=== PATIENT | male | born 1960 | race African-American/Black ===

== ENCOUNTER 2017-06-21 15:39 | Emergency (ER) | payer MEDICARE, MEDICAID ==
[~2017-06-21] VITALS: Ht 175.3 cm; Wt 75.0 kg
[~2017-06-21 15:39] MED LIST: ALBU8.5H8 IH; CLIN-80 PO; CYCL-1 PO; IBUP-1985 PO; IBUP-1986 PO; NO HOME MEDS; PERM60CR4 TOP
[2017-06-21 15:43] VITALS: BP 121/85
[2017-06-21] MEDS ORDERED: GUAI120015 PO (15:49)
[2017-06-21] MEDS ORDERED: ALBU6.7H INH (15:49)
== END 2017-06-21 16:00 | disposition home or self-care (01) ==
LOC: ER 15:39
DX: J20.9 Acute bronchitis, unspecified (principal); J44.0 Chronic obstructive pulmonary disease with (acute) lower respiratory infection; G89.29 Other chronic pain; F15.10 Other stimulant abuse, uncomplicated; F17.210 Nicotine dependence, cigarettes, uncomplicated; Z88.1 Allergy status to other antibiotic agents; Z88.6 Allergy status to analgesic agent; Z88.8 Allergy status to other drugs, medicaments and biological substances; Z59.0 Homelessness; Z86.19 Personal history of other infectious and parasitic diseases
CPT/HCPCS: 99283

== ENCOUNTER 2017-07-29 19:23 | Emergency (ER) | payer MEDICARE, MEDICAID ==
[~2017-07-29] VITALS: Ht 175.3 cm; Wt 65.5 kg
[~2017-07-29 19:23] MED LIST changes: +ALBU6.7H INH; +GUAI120015 PO
[2017-07-29 20:44] VITALS: BP 150/93
[2017-07-29] MEDS ORDERED: GUAI473S11 PO (21:19)
[2017-07-29] MEDS ORDERED: IBUP-1984 PO (21:19)
[2017-07-29] MEDS ORDERED: PSEU120T55 PO (21:19)
[2017-07-29] MEDS ORDERED: AZIT250T PO (21:19)
== END 2017-07-29 21:28 | disposition home or self-care (01) ==
LOC: ER 19:24
DX: J06.9 Acute upper respiratory infection, unspecified (principal); J40 Bronchitis, not specified as acute or chronic; G89.29 Other chronic pain; J44.9 Chronic obstructive pulmonary disease, unspecified; Z59.0 Homelessness; F15.90 Other stimulant use, unspecified, uncomplicated; Z98.890 Other specified postprocedural states; Z79.899 Other long term (current) drug therapy
CPT/HCPCS: 71045; 99284

== ENCOUNTER 2017-08-18 22:20 | Emergency (ER) | payer MEDICARE, MEDICAID ==
[~2017-08-18] VITALS: Ht 175.3 cm; Wt 64.0 kg
[~2017-08-18 22:20] MED LIST changes: +AZIT250T PO; +GUAI473S11 PO; +IBUP-1984 PO; +PSEU120T55 PO
[2017-08-18] MEDS ORDERED: aspirin 81mg tab.chew PO ONE (23:15)
[2017-08-18] MEDS ORDERED: AZIT-55 PO (23:54)
[2017-08-19 00:21] LABS: BASOPHILS # (AUTO) 0.1 X10'3 (0-0.2); BASOPHILS % (AUTO) 1.2 % (0-1); EOSINOPHILS # (AUTO) 0.1 X10'3 (0-0.9); EOSINOPHILS % (AUTO) 1.9 % (0-6); HEMATOCRIT 40.1 % (42.0-52.0); HEMOGLOBIN 13.2 g/dl (14.0-17.9); LYMPHOCYTES # (AUTO) 1.8 X10'3 (1.1-4.8); LYMPHOCYTES % (AUTO) 38.8 % (21-51); MEAN CORPUSCULAR HEMOGLOBIN 30.4 PG (27.0-31.0); MEAN CORPUSCULAR HGB CONC 32.8 % (33.0-36.5); MEAN CORPUSCULAR VOLUME 92.6 FL (78-98); MEAN PLATELET VOLUME 7.4 FL (7.4-10.4); MONOCYTES # (AUTO) 0.6 X10'3 (0-0.9); MONOCYTES % (AUTO) 13.3 % (2-12); NEUTROPHILS % (AUTO) 44.8 % (42-75); PLATELET COUNT 293 X10'3 (140-440); RED BLOOD COUNT 4.33 X10'6 (4.70-6.10); RED CELL DISTRIBUTION WIDTH 13.1 % (11.5-14.5); WHITE BLOOD COUNT 4.6 X10'3 (4.5-11.0)
[2017-08-19 00:41] LABS: ALANINE AMINOTRANSFERASE 105 U/L (12-78); ALBUMIN 3.2 G/DL (3.4-5.0); ALBUMIN/GLOBULIN RATIO 0.7 (1.1-1.5); ALKALINE PHOSPHATASE 85 IU/L (46-116); ANION GAP 4 (8-16); ASPARTATE AMINO TRANSFERASE 55 U/L (10-37); BILIRUBIN,TOTAL 0.4 MG/DL (0.1-1.0); BLOOD UREA NITROGEN 18 MG/DL (7-18); BUN/CREATININE RATIO 17.6 (5.4-32.0); CALCIUM 8.5 MG/DL (8.5-10.1); CHLORIDE 107 MMOL/L (99-107); CREATININE 1.02 MG/DL (0.60-1.10); GLUCOSE 89 MG/DL (70-104); MAGNESIUM 2.1 MG/DL (1.5-2.4); POTASSIUM 3.8 MMOL/L (3.5-5.1); SODIUM 141 MMOL/L (135-145); TOTAL CARBON DIOXIDE 30.3 MMOL/L (24-32); TOTAL PROTEIN 7.6 G/DL (6.4-8.2); eGFR > 90 ML/MIN
[2017-08-19 01:09] VITALS: BP 137/86
== END 2017-08-19 01:15 | disposition home or self-care (01) ==
LOC: ER 22:21
DX: R07.9 Chest pain, unspecified (principal); J44.9 Chronic obstructive pulmonary disease, unspecified; F17.200 Nicotine dependence, unspecified, uncomplicated; F15.10 Other stimulant abuse, uncomplicated; Z59.0 Homelessness
CPT/HCPCS: 36415; 71045; 80053; 83735; 83880; 84484; 85025; 93005; 99285; J7030

== ENCOUNTER 2017-08-29 09:47 | Emergency (ER) | payer MEDICARE, MEDICAID ==
[~2017-08-29] VITALS: Ht 165.1 cm; Wt 72.7 kg
[~2017-08-29 09:47] MED LIST changes: +AZIT-55 PO
[2017-08-29 09:50] VITALS: BP 120/71
[2017-08-29] MEDS ORDERED: DOXY100C2 PO (11:11)
[2017-08-29] MEDS ORDERED: CefTRIAXone 1000mg IM Kit (w/lidocaine diluent) IM ONE (11:15)
[2017-08-29] MEDS ORDERED: azithromycin 250mg tablet PO ONE (11:15)
== END 2017-08-29 11:58 | disposition home or self-care (01) ==
LOC: ER 09:47
DX: R59.1 Generalized enlarged lymph nodes (principal); R21 Rash and other nonspecific skin eruption; J44.9 Chronic obstructive pulmonary disease, unspecified; G89.29 Other chronic pain; F15.10 Other stimulant abuse, uncomplicated; Z59.0 Homelessness; Z86.19 Personal history of other infectious and parasitic diseases; Z98.890 Other specified postprocedural states; Z79.899 Other long term (current) drug therapy
CPT/HCPCS: 96372; 99283; J0696

== ENCOUNTER 2017-09-03 13:28 | Emergency (ER) | payer MEDICARE, MEDICAID ==
[~2017-09-03] VITALS: Ht 175.3 cm; Wt 72.7 kg
[~2017-09-03 13:28] MED LIST changes: +DOXY100C2 PO; -GUAI473S11 PO; -IBUP-1984 PO
[2017-09-03 13:49] VITALS: BP 144/90
[2017-09-03] MEDS ORDERED: IBUP-1984 PO (13:49)
== END 2017-09-03 14:04 | disposition home or self-care (01) ==
LOC: ER 13:28
DX: R59.1 Generalized enlarged lymph nodes (principal); J44.9 Chronic obstructive pulmonary disease, unspecified; G89.29 Other chronic pain; F15.10 Other stimulant abuse, uncomplicated; Z98.890 Other specified postprocedural states; Z59.0 Homelessness; Z79.899 Other long term (current) drug therapy
CPT/HCPCS: 99282

== ENCOUNTER 2017-09-13 02:17 | Emergency (ER) | payer MEDICARE, MEDICAID ==
[~2017-09-13] VITALS: Ht 175.3 cm; Wt 65.2 kg
[~2017-09-13 02:17] MED LIST changes: -AZIT-55 PO; -DOXY100C2 PO; +IBUP-1984 PO
[2017-09-13 02:50] VITALS: BP 138/91
== END 2017-09-13 03:06 | disposition left against medical advice (07) ==
LOC: ER 02:18
DX: R21 Rash and other nonspecific skin eruption (principal); Z53.21 Procedure and treatment not carried out due to patient leaving prior to being seen by health care provider

== ENCOUNTER 2017-11-16 15:53 | Emergency (ER) | payer MEDICARE, MEDICAID ==
[~2017-11-16] VITALS: Ht 175.3 cm; Wt 64.1 kg
[~2017-11-16 15:53] MED LIST changes: -CLIN-80 PO; +CLIN300C85 PO; -IBUP-1984 PO
[2017-11-16] MEDS ORDERED: ibuprofen tablet 400 MG TABLET PO ONE (16:45)
[2017-11-16] MEDS ORDERED: IBUP-1984 PO (16:47)
[2017-11-16 16:56] VITALS: BP 135/89
== END 2017-11-16 16:57 | disposition home or self-care (01) ==
LOC: ER 15:54
DX: M79.662 Pain in left lower leg (principal); J44.9 Chronic obstructive pulmonary disease, unspecified; G89.29 Other chronic pain; F15.90 Other stimulant use, unspecified, uncomplicated; Z79.899 Other long term (current) drug therapy; Z59.0 Homelessness
CPT/HCPCS: 99282

== ENCOUNTER 2018-02-17 23:03 | Emergency (ER) | payer MEDICARE, MEDICAID ==
[~2018-02-17] VITALS: Ht 175.3 cm; Wt 52.0 kg
[2018-02-17 23:12] VITALS: BP 132/80
[2018-02-17] MEDS ORDERED: AMOX500C2 PO (23:49)
[2018-02-17] MEDS ORDERED: ibuprofen tablet 400 MG TABLET PO ONE (23:50)
== END 2018-02-18 00:07 | disposition home or self-care (01) ==
LOC: ER 23:05
DX: J02.9 Acute pharyngitis, unspecified (principal); J44.9 Chronic obstructive pulmonary disease, unspecified; G89.29 Other chronic pain; F15.90 Other stimulant use, unspecified, uncomplicated; Z98.890 Other specified postprocedural states; Z59.0 Homelessness
CPT/HCPCS: 99283

== ENCOUNTER 2018-03-14 19:58 | Emergency (ER) | payer MEDICARE, MEDICAID ==
[~2018-03-14] VITALS: Ht 175.3 cm; Wt 75.0 kg
[~2018-03-14 19:58] MED LIST changes: +AMOX500C2 PO
[2018-03-14 20:05] VITALS: BP 131/87
== END 2018-03-14 22:13 | disposition home or self-care (01) ==
LOC: ER 19:59
DX: B34.9 Viral infection, unspecified (principal); J44.9 Chronic obstructive pulmonary disease, unspecified; G89.29 Other chronic pain; F15.90 Other stimulant use, unspecified, uncomplicated; F17.210 Nicotine dependence, cigarettes, uncomplicated; Z59.0 Homelessness
CPT/HCPCS: 71045; 99283

== ENCOUNTER 2018-05-09 08:01 | Inpatient (IN) | payer MEDICARE, MEDICAID ==
[~2018-05-09] VITALS: Ht 175.3 cm; Wt 65.9 kg
[~2018-05-09 08:01] MED LIST changes: -AMOX500C2 PO; +AZIT-72 PO
[2018-05-09] MEDS ORDERED: normal saline 1000ML IV soln IV ONE (08:20)
[2018-05-09] MEDS ORDERED: morphine 4 MG/ML inj SYRINge IV ONE (08:20)
[2018-05-09] MEDS ORDERED: methylPREDNISolone sod succ 125mg/2ml vial IV ONE (08:20)
[2018-05-09] MEDS ORDERED: ipratropium/albuterol 3ml nebule NEB ONE (08:20)
[2018-05-09] MEDS ORDERED: CefTRIAXone 2gm/D5W 50ml 50 ML IV ONE (08:20)
[2018-05-09] MEDS ORDERED: azithromycin/NS 500mg/250ml 250 ML IV ONE (08:20)
[2018-05-09 08:53] LABS: BASOPHILS % (AUTO) 0.1 % (0-1); EOSINOPHILS % (AUTO) 0 % (0-6); HEMOGLOBIN 13.3 g/dl (14.0-17.9); LYMPHOCYTES # (AUTO) 1.5 X10'3 (1.1-4.8); LYMPHOCYTES % (AUTO) 9.7 % (21-51); MEAN CORPUSCULAR HEMOGLOBIN 30.4 PG (27.0-31.0); MEAN CORPUSCULAR HGB CONC 32.6 % (33.0-36.5); MEAN CORPUSCULAR VOLUME 93.3 FL (78-98); MEAN PLATELET VOLUME 7.7 FL (7.4-10.4); MONOCYTES # (AUTO) 0.3 X10'3 (0-0.9); MONOCYTES % (AUTO) 1.7 % (2-12); NEUTROPHILS # (AUTO) 13.5 X10'3 (1.8-7.7); NEUTROPHILS % (AUTO) 88.5 % (42-75); PLATELET COUNT 234 X10'3 (140-440); RED BLOOD COUNT 4.39 X10'6 (4.70-6.10); RED CELL DISTRIBUTION WIDTH 13.5 % (11.5-14.5); WHITE BLOOD COUNT 15.3 X10'3 (4.5-11.0)
[2018-05-09 09:07] LABS: ALANINE AMINOTRANSFERASE 23 U/L (12-78); ALBUMIN 3.4 G/DL (3.4-5.0); ALBUMIN/GLOBULIN RATIO 0.8 (1.1-1.5); ALKALINE PHOSPHATASE 71 IU/L (46-116); ANION GAP 9 (8-16); ASPARTATE AMINO TRANSFERASE 22 U/L (10-37); BILIRUBIN,TOTAL 0.6 MG/DL (0.1-1.0); BLOOD UREA NITROGEN 12 MG/DL (7-18); CALCIUM 8.3 MG/DL (8.5-10.1); CHLORIDE 98 MMOL/L (99-107); GLUCOSE 101 MG/DL (70-104); POTASSIUM 3.8 MMOL/L (3.5-5.1); SODIUM 133 MMOL/L (135-145); TOTAL CARBON DIOXIDE 26.3 MMOL/L (24-32); TOTAL PROTEIN 7.7 G/DL (6.4-8.2); eGFR 76 ML/MIN
[2018-05-09 09:09] LABS: INR 1.1 INR; PARTIAL THROMBOPLASTIN TIME 34 SECONDS (22-32); PROTHROMBIN TIME 11.5 SECONDS (9.0-12.0)
[2018-05-09] MEDS ORDERED: NO HOME MEDS (09:58)
[2018-05-09 10:59] LABS: TOTAL CELLS COUNTED 100
[2018-05-09 11:00] LABS: PLATELET ESTIMATE NORMAL; TOXIC GRANULATION 2+; TOXIC VACUOLATION 2+
[2018-05-09 11:01] LABS: SMUDGE CELLS 2+
[2018-05-09 12:08] LABS: ETHANOL < 0.010 GM/DL (0.0-0.010)
[2018-05-09 14:54] VITALS: BP 122/78
[2018-05-09 19:00] VITALS: BP 114/73
[2018-05-09 23:00] VITALS: BP 111/65
[2018-05-10] MEDS: CefTRIAXone/D5W-Rocephin 1gm 50 ML IV SCH (07:12)
[2018-05-10 07:55] LABS: CLARITY,URINE CLEAR (Clear); COLOR,URINE YELLOW (Yellow); GLUCOSE, URINE NEGATIVE (Neg); KETONES,URINE NEGATIVE (Neg); LEUKOCYTE ESTERASE ,URINE TRACE (Neg); NITRITES, URINE NEGATIVE (Neg); OCCULT BLOOD,URINE NEGATIVE (Neg); PH,URINE 6.5 (4.8-8.0); PROTEIN,URINE NEGATIVE (Neg); UROBILINOGEN,URINE 0.2 E.U/dL (0.2-1.0)
[2018-05-10 07:56] LABS: UA COLLECTION TYPE NON-SPECIFIED
[2018-05-10 08:00] VITALS: BP 100/76
[2018-05-10 08:01] LABS: BACTERIA,URINE NONE SEEN /HPF (Neg); MUCUS STRANDS NONE SEEN /LPF (Neg); RBC,URINE NONE SEEN /HPF (0-2); SQUAMOUS EPITHELIAL CELL,UR NONE SEEN /LPF (FEW); WBC,URINE NONE SEEN /HPF (0-4)
[2018-05-10 08:22] LABS: URINE AMPHETAMINE SCREEN POSITIVE (Neg); URINE BARBITUATE SCREEN NEGATIVE (Neg); URINE BENZODIAZEPINES SCREEN NEGATIVE (Neg); URINE CANNABINOID SCREEN NEGATIVE (Neg); URINE COCAINE SCREEN NEGATIVE (Neg); URINE METHADONE SCREEN NEGATIVE (Neg); URINE OPIATE SCREEN POSITIVE (Neg); URINE PHENCYCLIDINE SCREEN NEGATIVE (Neg)
[2018-05-10] MEDS: azithromycin/NS 500mg/250ml 250 ML IV SCH (08:42)
[2018-05-10 11:00] VITALS: BP 127/78
[2018-05-10] MEDS: normal saline 1000ml 1,000 ML IV SCH ×2 (12:03→21:28)
[2018-05-10] MEDS ORDERED: magnesium hydroxide 30ml (MOM) UD suspension PO PRN (12:05)
[2018-05-10] MEDS ORDERED: mag hydrox/Alum hydrox/simeth 30ml oral suspension PO PRN (12:05)
[2018-05-10] MEDS ORDERED: ondansetron/PF 4mg/2ml inj IV PRN (12:05)
[2018-05-10] MEDS ORDERED: acetaminophen 325mg tablet PO PRN (12:05)
[2018-05-10] MEDS ORDERED: albuterol 2.5 MG/3 ML nebule NEB PRN (12:05)
[2018-05-10 12:24] LABS: BASOPHILS % (AUTO) 0.2 % (0-1); EOSINOPHILS % (AUTO) 0 % (0-6); HEMATOCRIT 36.2 % (42.0-52.0); HEMOGLOBIN 11.8 g/dl (14.0-17.9); LYMPHOCYTES # (AUTO) 3.4 X10'3 (1.1-4.8); LYMPHOCYTES % (AUTO) 15.9 % (21-51); MEAN CORPUSCULAR HEMOGLOBIN 30.3 PG (27.0-31.0); MEAN CORPUSCULAR HGB CONC 32.6 % (33.0-36.5); MEAN CORPUSCULAR VOLUME 92.9 FL (78-98); MEAN PLATELET VOLUME 7.9 FL (7.4-10.4); MONOCYTES # (AUTO) 0.7 X10'3 (0-0.9); MONOCYTES % (AUTO) 3.2 % (2-12); NEUTROPHILS # (AUTO) 17.3 X10'3 (1.8-7.7); NEUTROPHILS % (AUTO) 80.7 % (42-75); PLATELET COUNT 212 X10'3 (140-440); RED BLOOD COUNT 3.89 X10'6 (4.70-6.10); RED CELL DISTRIBUTION WIDTH 13.5 % (11.5-14.5); WHITE BLOOD COUNT 21.4 X10'3 (4.5-11.0)
[2018-05-10] MEDS: methylPREDNISolone sod succ 125mg/2ml vial IV SCH ×2 (14:11→20:25)
[2018-05-10 20:00] VITALS: BP 135/87
[2018-05-10] MEDS: lactobacillus rhamnosus 10,000 MMU CELLS/CAPSULE PO SCH (20:24)
[2018-05-10] MEDS: heparin, porcine 5000 units/ml vial SQ SCH (20:25)
[2018-05-11] VITALS: BP 128/77
[2018-05-11] MEDS: methylPREDNISolone sod succ 125mg/2ml vial IV SCH ×2 (01:41→08:48)
[2018-05-11 05:53] LABS: BASOPHILS % (AUTO) 0.3 % (0-1); EOSINOPHILS % (AUTO) 0 % (0-6); HEMATOCRIT 37.9 % (42.0-52.0); HEMOGLOBIN 12.2 g/dl (14.0-17.9); LYMPHOCYTES # (AUTO) 1.1 X10'3 (1.1-4.8); LYMPHOCYTES % (AUTO) 7.4 % (21-51); MEAN CORPUSCULAR HEMOGLOBIN 30.2 PG (27.0-31.0); MEAN CORPUSCULAR HGB CONC 32.2 % (33.0-36.5); MEAN CORPUSCULAR VOLUME 93.7 FL (78-98); MEAN PLATELET VOLUME 8.1 FL (7.4-10.4); MONOCYTES % (AUTO) 0.1 % (2-12); NEUTROPHILS # (AUTO) 14.3 X10'3 (1.8-7.7); NEUTROPHILS % (AUTO) 92.2 % (42-75); PLATELET COUNT 234 X10'3 (140-440); RED BLOOD COUNT 4.05 X10'6 (4.70-6.10); RED CELL DISTRIBUTION WIDTH 13.4 % (11.5-14.5); WHITE BLOOD COUNT 15.5 X10'3 (4.5-11.0)
[2018-05-11 06:07] LABS: ALBUMIN 2.6 G/DL (3.4-5.0); ANION GAP 10 (8-16); BLOOD UREA NITROGEN 19 MG/DL (7-18); BUN/CREATININE RATIO 20.9 (5.4-32.0); CALCIUM 7.9 MG/DL (8.5-10.1); CHLORIDE 103 MMOL/L (99-107); CREATININE 0.91 MG/DL (0.60-1.10); GLUCOSE 141 MG/DL (70-104); SODIUM 135 MMOL/L (135-145); TOTAL CARBON DIOXIDE 21.9 MMOL/L (24-32); eGFR > 90 ML/MIN
[2018-05-11 07:00] VITALS: BP 153/95
[2018-05-11] MEDS: heparin, porcine 5000 units/ml vial SQ SCH (08:00)
[2018-05-11] MEDS: CefTRIAXone/D5W-Rocephin 1gm 50 ML IV SCH (08:47)
[2018-05-11] MEDS: lactobacillus rhamnosus 10,000 MMU CELLS/CAPSULE PO SCH (08:48)
[2018-05-11] MEDS: normal saline 1000ml 1,000 ML IV SCH (09:40)
[2018-05-11] MEDS: azithromycin/NS 500mg/250ml 250 ML IV SCH (09:40)
[2018-05-11 11:17] VITALS: BP 135/86
[2018-05-11] MEDS ORDERED: ALBU6.7H INH (12:21)
[2018-05-11] MEDS ORDERED: CEPH500C5 PO (12:21)
[2018-05-11] MEDS ORDERED: FAMO-128 PO (12:21)
[2018-05-11] MEDS ORDERED: PRED10TA23 PO (12:21)
== END 2018-05-11 14:15 | disposition home or self-care (01) | DRG 191 ==
LOC: ER 08:02 → ED HOLD 10:25 → SUR 3N 14:27
PROVIDERS: ADMIT Internal Medicine; ATTEND Internal Medicine
DX: J44.0 Chronic obstructive pulmonary disease with (acute) lower respiratory infection (principal); E87.1 Hypo-osmolality and hyponatremia; J44.1 Chronic obstructive pulmonary disease with (acute) exacerbation; N28.9 Disorder of kidney and ureter, unspecified; F17.200 Nicotine dependence, unspecified, uncomplicated; I34.0 Nonrheumatic mitral (valve) insufficiency; J20.9 Acute bronchitis, unspecified; B19.20 Unspecified viral hepatitis C without hepatic coma; F15.10 Other stimulant abuse, uncomplicated; F11.90 Opioid use, unspecified, uncomplicated; G89.29 Other chronic pain; R00.0 Tachycardia, unspecified; Z59.0 Homelessness; Z79.899 Other long term (current) drug therapy; Z71.6 Tobacco abuse counseling; Z71.51 Drug abuse counseling and surveillance of drug abuser
CPT/HCPCS: 36415; 71045; 76700; 80048; 80053; 80305; 80320; 81001; 83605; 84484; 85025; 85610; 85730; 87040; 87070; 87502; 87503; 93005; 93306; 94640; 94760; 96365; 96366; 96368; 96375; 99285; G0378; J0456; J0696; J1644; J2270; J2930; J7030

== ENCOUNTER 2018-08-10 05:36 | Emergency (ER) | payer MEDICARE, MEDICAID ==
[~2018-08-10] VITALS: Ht 175.3 cm; Wt 58.7 kg
[~2018-08-10 05:36] MED LIST changes: -ALBU8.5H8 IH; -AZIT-72 PO; -AZIT250T PO; -CLIN300C85 PO; -CYCL-1 PO; +FAMO-128 PO; -GUAI120015 PO; -IBUP-1985 PO; -IBUP-1986 PO; -NO HOME MEDS; -PERM60CR4 TOP; -PSEU120T55 PO
[2018-08-10] MEDS ORDERED: CYCL-1 PO (06:49)
[2018-08-10] MEDS ORDERED: NAPR-56 PO (06:49)
[2018-08-10] MEDS ORDERED: naproxen 500mg tablet PO ONE (06:50)
[2018-08-10 08:00] VITALS: BP 159/93
== END 2018-08-10 08:00 | disposition home or self-care (01) ==
LOC: ER 05:37
DX: M25.511 Pain in right shoulder (principal); R10.30 Lower abdominal pain, unspecified; M54.9 Dorsalgia, unspecified; M62.838 Other muscle spasm; F15.10 Other stimulant abuse, uncomplicated; J44.9 Chronic obstructive pulmonary disease, unspecified; G89.29 Other chronic pain; F11.90 Opioid use, unspecified, uncomplicated; Z59.0 Homelessness; Z98.890 Other specified postprocedural states; Z79.899 Other long term (current) drug therapy; V49.59XA Passenger injured in collision with other motor vehicles in traffic accident, initial encounter; Y93.89 Activity, other specified; Y92.413 State road as the place of occurrence of the external cause; Y99.9 Unspecified external cause status
CPT/HCPCS: 99283

== ENCOUNTER 2018-08-13 23:02 | Emergency (ER) | payer MEDICARE, MEDICAID ==
[~2018-08-13] VITALS: Ht 175.3 cm; Wt 72.0 kg
[~2018-08-13 23:02] MED LIST changes: +CYCL-1 PO; +NAPR-56 PO
[2018-08-13 23:08] VITALS: BP 142/87
[2018-08-13 23:42] LABS: CLARITY,URINE CLEAR (Clear); COLOR,URINE YELLOW (Yellow); GLUCOSE, URINE NEGATIVE (Neg); KETONES,URINE NEGATIVE (Neg); LEUKOCYTE ESTERASE ,URINE TRACE (Neg); NITRITES, URINE NEGATIVE (Neg); OCCULT BLOOD,URINE NEGATIVE (Neg); PROTEIN,URINE NEGATIVE (Neg); UROBILINOGEN,URINE 0.2 E.U/dL (0.2-1.0)
[2018-08-13 23:48] LABS: UA COLLECTION TYPE CLN CATCH MIDSTREAM
[2018-08-13 23:49] LABS: BACTERIA,URINE FEW /HPF (Neg); RBC,URINE NONE SEEN /HPF (0-2); SQUAMOUS EPITHELIAL CELL,UR FEW /LPF (FEW); URINE AMPHETAMINE SCREEN POSITIVE (Neg); URINE BARBITUATE SCREEN NEGATIVE (Neg); URINE BENZODIAZEPINES SCREEN NEGATIVE (Neg); URINE CANNABINOID SCREEN NEGATIVE (Neg); URINE COCAINE SCREEN NEGATIVE (Neg); URINE METHADONE SCREEN NEGATIVE (Neg); URINE OPIATE SCREEN POSITIVE (Neg); URINE PHENCYCLIDINE SCREEN NEGATIVE (Neg)
[2018-08-13] MEDS ORDERED: ondansetron 4mg rapidly disintigrating tab PO ONE (23:50)
[2018-08-14] MEDS ORDERED: DOXYCYCLINE 100MG CAPSULE PO STA (00:21)
[2018-08-14] MEDS ORDERED: ONDA4TAB6 PO (00:25)
[2018-08-14] MEDS ORDERED: DOXY100C43 PO (00:25)
[2018-08-14] MEDS ORDERED: CefTRIAXone 250MG IM Kit w/LIDOcaine IM ONE (00:25)
== END 2018-08-14 00:46 | disposition home or self-care (01) ==
LOC: ER 23:03
DX: N41.0 Acute prostatitis (principal); R31.9 Hematuria, unspecified; J44.9 Chronic obstructive pulmonary disease, unspecified; G89.29 Other chronic pain; F15.90 Other stimulant use, unspecified, uncomplicated; F11.90 Opioid use, unspecified, uncomplicated; Z79.899 Other long term (current) drug therapy; Z59.0 Homelessness
CPT/HCPCS: 80305; 81001; 87088; 96372; 99283; J0696

== ENCOUNTER 2019-01-06 13:24 | Emergency (ER) | payer MEDICARE, MEDICAID ==
[~2019-01-06] VITALS: Ht 177.8 cm; Wt 78.0 kg
[~2019-01-06 13:24] MED LIST changes: -ALBU6.7H INH; +ALBU6.7H9 INH; -NAPR-56 PO; +ONDA4TAB6 PO
[2019-01-06] MEDS ORDERED: naloxone 2mg/2ml inj ONE (13:33)
[2019-01-06] MEDS ORDERED: naloxone 2mg/2ml inj IV ONE (13:40)
[2019-01-06 14:00] LABS: BASOPHILS % (AUTO) 0.7 % (0-1); EOSINOPHILS # (AUTO) 0.3 X10'3 (0-0.9); EOSINOPHILS % (AUTO) 4.4 % (0-6); HEMATOCRIT 36.7 % (42.0-52.0); HEMOGLOBIN 12.2 g/dl (14.0-17.9); LYMPHOCYTES # (AUTO) 3.3 X10'3 (1.1-4.8); LYMPHOCYTES % (AUTO) 56.5 % (21-51); MEAN CORPUSCULAR HEMOGLOBIN 30.9 PG (27.0-31.0); MEAN CORPUSCULAR HGB CONC 33.3 g/dL (33.0-36.5); MEAN CORPUSCULAR VOLUME 92.8 FL (78-98); MEAN PLATELET VOLUME 7.6 FL (7.4-10.4); MONOCYTES # (AUTO) 0.4 X10'3 (0-0.9); MONOCYTES % (AUTO) 6.7 % (2-12); NEUTROPHILS # (AUTO) 1.8 X10'3 (1.8-7.7); NEUTROPHILS % (AUTO) 31.7 % (42-75); PLATELET COUNT 236 X10'3 (140-440); RED BLOOD COUNT 3.96 X10'6 (4.70-6.10); RED CELL DISTRIBUTION WIDTH 13.4 % (11.5-14.5); WHITE BLOOD COUNT 5.8 X10'3 (4.5-11.0)
--- NOTE | 2019-01-06 14:00 | NUR ---
PT REFUSED TO PROVIDE URINE SAMPLE AND REFUSING STRAIGHT CATH.
[2019-01-06 14:09] LABS: ACETAMINOPHEN < 2.0 UG/ML (10-30); ALANINE AMINOTRANSFERASE 28 U/L (12-78); ALBUMIN 3.4 G/DL (3.4-5.0); ALKALINE PHOSPHATASE 63 IU/L (46-116); ANION GAP 6 (8-16); ASPARTATE AMINO TRANSFERASE 22 U/L (10-37); BILIRUBIN,TOTAL 0.4 MG/DL (0.1-1.0); BLOOD UREA NITROGEN 11 MG/DL (7-18); BUN/CREATININE RATIO 10.9 (5.4-32.0); CALCIUM 8.6 MG/DL (8.5-10.1); CHLORIDE 109 MMOL/L (99-107); CREATININE 1.01 MG/DL (0.60-1.10); ETHANOL 0.024 GM/DL (0.0-0.010); GLUCOSE 86 MG/DL (70-104); POTASSIUM 3.9 MMOL/L (3.5-5.1); SODIUM 144 MMOL/L (135-145); TOTAL CARBON DIOXIDE 28.8 MMOL/L (24-32); TOTAL PROTEIN 6.8 G/DL (6.4-8.2); eGFR > 90 ML/MIN
--- NOTE | 2019-01-06 15:08 | NUR ---
I attempted to ambulate pt per PA's request. Pt is arousable but somnolent. He is mumbling responses to my questions and is not formulating complete sentences. Not able to ambulate pt at this time. Informed SELENA Mcdaniel.
[2019-01-06 17:19] VITALS: BP 152/104
== END 2019-01-06 17:22 | disposition home or self-care (01) ==
LOC: ER 13:24
DX: R41.82 Altered mental status, unspecified (principal); F10.929 Alcohol use, unspecified with intoxication, unspecified; J44.9 Chronic obstructive pulmonary disease, unspecified; G89.29 Other chronic pain; F15.90 Other stimulant use, unspecified, uncomplicated; F11.90 Opioid use, unspecified, uncomplicated; Z87.19 Personal history of other diseases of the digestive system; Z98.890 Other specified postprocedural states; Z59.0 Homelessness; Z86.19 Personal history of other infectious and parasitic diseases; Z79.899 Other long term (current) drug therapy; Y90.9 Presence of alcohol in blood, level not specified
CPT/HCPCS: 36415; 71045; 80053; 80320; 80329; 85025; 99284; J2310

== ENCOUNTER 2019-06-13 05:08 | Emergency (ER) | payer MEDICARE, MEDICAID ==
[~2019-06-13] VITALS: Ht 175.3 cm; Wt 72.0 kg
[2019-06-13] MEDS ORDERED: ibuprofen 200mg tablet PO ONE (05:30)
[2019-06-13 07:13] VITALS: BP 165/101
== END 2019-06-13 07:25 | disposition home or self-care (01) ==
LOC: ER 05:08
DX: M79.672 Pain in left foot (principal); J44.9 Chronic obstructive pulmonary disease, unspecified; G89.29 Other chronic pain; F17.200 Nicotine dependence, unspecified, uncomplicated; F10.99 Alcohol use, unspecified with unspecified alcohol-induced disorder; F12.90 Cannabis use, unspecified, uncomplicated; F15.90 Other stimulant use, unspecified, uncomplicated; Z86.19 Personal history of other infectious and parasitic diseases; Z59.0 Homelessness; Z79.899 Other long term (current) drug therapy; Y90.9 Presence of alcohol in blood, level not specified
CPT/HCPCS: 73630; 93926; 99284

== ENCOUNTER 2019-10-21 13:33 | Emergency (ER) | payer MEDICARE, MEDICAID ==
[~2019-10-21] VITALS: Ht 177.8 cm; Wt 72.7 kg
--- NOTE | 2019-10-21 13:33 | NUR ---
Child notified of patient and condition.
--- NOTE | 2019-10-21 16:24 | NUR ---
Patient continues to sleep. He is easily arousable to voice. Vitals remain stable.
--- NOTE | 2019-10-21 16:35 | NUR ---
Dr. Altamirano updated on patient and his condition.
--- NOTE | 2019-10-21 17:36 | NUR ---
Patient's condition remains unchanged.
[2019-10-21 19:08] VITALS: BP 145/99
== END 2019-10-21 19:11 | disposition home or self-care (01) ==
LOC: ER 13:33 → MERGE 13:33 → EDBD 13:33 → ER 19:11
DX: T40.1X1A Poisoning by heroin, accidental (unintentional), initial encounter (principal); F11.90 Opioid use, unspecified, uncomplicated; Y92.89 Other specified places as the place of occurrence of the external cause
CPT/HCPCS: 93005; 99285

== ENCOUNTER 2021-06-17 01:11 | Emergency (ER) | payer MEDICARE, MEDICAID ==
[~2021-06-17] VITALS: Ht 175.3 cm; Wt 72.7 kg
[2021-06-17 01:23] VITALS: BP 164/98
== END 2021-06-17 01:48 ==
LOC: ER 01:12
DX: S09.90XA Unspecified injury of head, initial encounter (principal); S00.411A Abrasion of right ear, initial encounter; M54.50 Low back pain, unspecified; H92.01 Otalgia, right ear; J44.9 Chronic obstructive pulmonary disease, unspecified; G89.29 Other chronic pain; F12.90 Cannabis use, unspecified, uncomplicated; F15.90 Other stimulant use, unspecified, uncomplicated; F11.90 Opioid use, unspecified, uncomplicated; Z86.19 Personal history of other infectious and parasitic diseases; Z98.890 Other specified postprocedural states; Z72.89 Other problems related to lifestyle; Z59.00 Homelessness unspecified; Z79.899 Other long term (current) drug therapy; X58.XXXA Exposure to other specified factors, initial encounter; Y93.89 Activity, other specified; Y92.89 Other specified places as the place of occurrence of the external cause; Y99.8 Other external cause status
CPT/HCPCS: 99283